=== PATIENT | female | born 1990 | race Asian ===

== ENCOUNTER 2017-06-06 09:28 | Emergency (ER) | payer OTHER ==
[~2017-06-06] VITALS: Ht 160 cm; Wt 52.3 kg
[2017-06-06 10:44] VITALS: BP 127/71
== END 2017-06-06 10:45 | disposition home or self-care (01) ==
LOC: ER 09:29
DX: T15.11XA Foreign body in conjunctival sac, right eye, initial encounter (principal); X58.XXXA Exposure to other specified factors, initial encounter; Y93.89 Activity, other specified; Y92.89 Other specified places as the place of occurrence of the external cause; Y99.8 Other external cause status
CPT/HCPCS: 99281

== ENCOUNTER 2018-08-25 16:23 | Outpatient (CLI) | payer OTHER, MEDICAID ==
[~2018-08-25 16:23] MED LIST: CETI-102 PO; LORA-835 PO; MELA3TAB PO
[2018-08-25 16:56] LABS: CLARITY,URINE SLIGHTLY CLOUDY (Clear); COLOR,URINE YELLOW (Yellow); GLUCOSE, URINE NEGATIVE (Neg); KETONES,URINE 15 mg/dl (Neg); LEUKOCYTE ESTERASE ,URINE NEGATIVE (Neg); NITRITES, URINE NEGATIVE (Neg); OCCULT BLOOD,URINE NEGATIVE (Neg); PH,URINE 6.5 (4.8-8.0); PROTEIN,URINE TRACE mg/dl (Neg); UROBILINOGEN,URINE 0.2 E.U/dL (0.2-1.0)
[2018-08-25 17:01] LABS: BASOPHILS % (AUTO) 0.2 % (0-1); EOSINOPHILS # (AUTO) 0.2 X10'3 (0-0.9); HEMATOCRIT 45.4 % (35.0-45.0); HEMOGLOBIN 15.5 g/dl (12.0-16.0); LYMPHOCYTES # (AUTO) 2.1 X10'3 (1.1-4.8); LYMPHOCYTES % (AUTO) 29.4 % (21-51); MEAN CORPUSCULAR HEMOGLOBIN 31.3 PG (27.0-31.0); MEAN CORPUSCULAR HGB CONC 34.1 g/dL (33.0-36.5); MEAN CORPUSCULAR VOLUME 91.7 FL (78-98); MEAN PLATELET VOLUME 8.7 FL (7.4-10.4); MONOCYTES # (AUTO) 0.4 X10'3 (0-0.9); MONOCYTES % (AUTO) 5.8 % (2-12); NEUTROPHILS # (AUTO) 4.4 X10'3 (1.8-7.7); NEUTROPHILS % (AUTO) 61.6 % (42-75); PLATELET COUNT 184 X10'3 (140-440); RED BLOOD COUNT 4.95 X10'6 (4.20-5.60); RED CELL DISTRIBUTION WIDTH 13.2 % (11.5-14.5); WHITE BLOOD COUNT 7.1 X10'3 (4.5-11.0)
[2018-08-25 17:04] LABS: UA COLLECTION TYPE CLN CATCH MIDSTREAM
[2018-08-25 17:07] LABS: BACTERIA,URINE FEW /HPF (Neg); MUCUS STRANDS MANY /LPF (Neg); RBC,URINE NONE SEEN /HPF (0-2); SQUAMOUS EPITHELIAL CELL,UR MANY /LPF (FEW); WBC,URINE 0-4 /HPF (0-4)
[2018-08-25 17:20] LABS: ALANINE AMINOTRANSFERASE 21 U/L (12-78); ALBUMIN 4.3 G/DL (3.4-5.0); ALBUMIN/GLOBULIN RATIO 1.2 (1.1-1.5); ALKALINE PHOSPHATASE 47 IU/L (46-116); ANION GAP 9 (8-16); ASPARTATE AMINO TRANSFERASE 18 U/L (10-37); BLOOD UREA NITROGEN 15 MG/DL (7-18); CALCIUM 9.3 MG/DL (8.5-10.1); CHLORIDE 102 MMOL/L (99-107); CHOL/HDL RATIO 2.5 (0.00-4.99); CHOLESTEROL 218 MG/DL (0-200); CREATININE 0.75 MG/DL (0.40-0.90); GLUCOSE 96 MG/DL (70-104); HDL CHOLESTEROL 88 MG/DL (35-60); LDL CHOLESTEROL 125 MG/DL (50-100); POTASSIUM 3.5 MMOL/L (3.5-5.1); SODIUM 140 MMOL/L (135-145); TOTAL CARBON DIOXIDE 28.7 MMOL/L (24-32); TOTAL PROTEIN 7.8 G/DL (6.4-8.2); TRIGLYCERIDES 37 MG/DL (20-135); eGFR > 90 ML/MIN
== END 2018-08-25 23:59 | disposition home or self-care (01) ==
LOC: LAB 16:23
PROVIDERS: ATTEND Family Medicine
DX: L30.9 Dermatitis, unspecified (principal); Z76.89 Persons encountering health services in other specified circumstances
CPT/HCPCS: 36415; 80053; 80061; 81001; 84439; 84443; 85025

== ENCOUNTER 2018-10-08 06:09 | Emergency (ER) | payer OTHER ==
[~2018-10-08] VITALS: Ht 157.5 cm; Wt 50.0 kg
[2018-10-08 06:18] VITALS: BP 132/86
[2018-10-08] MEDS ORDERED: benzonatate 100mg capsule PO ONE (06:40)
[2018-10-08] MEDS ORDERED: ipratropium/albuterol 3ml nebule NEB ONE (06:40)
[2018-10-08] MEDS ORDERED: BENZ-16 PO (07:02)
== END 2018-10-08 07:24 | disposition home or self-care (01) ==
LOC: ER 06:09
DX: J06.9 Acute upper respiratory infection, unspecified (principal); E78.00 Pure hypercholesterolemia, unspecified; Z79.899 Other long term (current) drug therapy
CPT/HCPCS: 93005; 94640; 94760; 99283